=== PATIENT | male | born 1970 | race Caucasian/White ===

== ENCOUNTER 2019-07-15 20:06 | Emergency (ER) | payer BC ==
[2019-07-15] MEDS ORDERED: KETOROLAC 30 MG/ML VIAL IVP ONE (20:25)
[2019-07-15] MEDS ORDERED: METOCLOPRAMIDE HCL 10 MG/2 ML VIAL IVP ONE (20:25)
[2019-07-15] MEDS ORDERED: DIPHENHYDRAMINE HCL 50 MG/ML VIAL IVP ONE (20:25)
--- NOTE | 2019-07-15 20:28 | Emergency Department Record ---
History of Present Illness - General Chief Complaint: Headache Migraine Stated Complaint: headache,nausea Time Seen by Provider: 07/15/19 20:16 Source: Patient Mode of Arrival: Ambulatory Limitations: No limitations - History of Present Illness Initial Comments: 48 yo male presents to ED for evaluation of moderate to severe right sided headache symptoms that began approximately 5 hours ago. Patient reports nausea without vomiting, reports similar symptoms as a teenager due to migraines. Patient reports headache was gradual in onset, denies neck stiffness, fevers, chills, or anticoagulation use at home. MD Complaint: Headache Onset/Timin -: Hour(s) Onset Description: Gradual Location: Right Severity: Severe Quality: Throbbing, Similar to previous headaches Consistency: Constant Improves With: Nothing Worsens With: None Review of Systems Constitutional: Denies: Chills, Fever, Malaise, Night sweats Eyes: Denies: Eye discharge, Eye pain ENT: Denies: Congestion, Ear pain, Epistaxis Respiratory: Denies: Cough, Dyspnea Cardiovascular: Denies: Chest pain, Dyspnea on exertion Endocrine: Denies: Fatigue, Heat or cold intolerance Gastrointestinal: Reports: Nausea. Denies: Abdominal pain, Constipation, Vomiting Genitourinary: Denies: Incontinence, Retention Musculoskeletal: Denies: Arthralgia, Back pain, Gout, Joint swelling Skin: Denies: Bruising, Change in color Neurological: Reports: Headache. Denies: Abnormal gait, Confusion, Seizure Psychiatric: Denies: Anxiety Hematological/Lymphatic: Denies: Anemia, Blood Clots Physical Exam - General General Appearance: Alert, Oriented x3, Cooperative, Moderate distress Limitations: No limitations - Head Head exam: Atraumatic, Normocephalic, Normal inspection Head exam detail: negative: Abrasion, Contusion, Jean's sign, General tenderness, Hematoma, Laceration - Eye Eye exam: Normal appearance, PERRL. negative: Conjunctival injection, Periorbital swelling, Periorbital tenderness, Scleral icterus - ENT Ear exam: negative: Auricular hematoma, Auricular trauma Nasal Exam: negative: Active bleeding, Discharge, Dried blood, Foreign body Mouth exam: negative: Drooling, Laceration, Muffled voice, Tongue elevation - Neck Neck exam: Normal inspection. negative: Meningismus, Tenderness - Respiratory Respiratory exam: Normal lung sounds bilaterally. negative: Rales, Respiratory distress, Rhonchi, Stridor - Cardiovascular Cardiovascular Exam: Regular rate, Normal rhythm, Normal heart sounds - GI/Abdominal GI/Abdominal exam: Soft. negative: Rebound, Rigid, Tenderness - Rectal Rectal exam: Deferred - exam: Deferred - Extremities Extremities exam: Normal inspection. negative: Pedal edema, Tenderness - Back Back exam: Denies: CVA tenderness (R), CVA tenderness (L) - Neurological Neurological exam: Alert, Normal gait, Oriented X3 - Psychiatric Psychiatric exam: Normal affect, Normal mood - Skin Skin exam: Normal color. negative: Abrasion Type of lesion: negative: abrasion Course Vital Signs 07/15/19 20:21 Temperature 97.6 F Pulse Rate [ 70 Right] Respiratory 20 Rate Blood Pressure 164/113 [Left Arm] Pulse Ox 97 - Reevaluation(s) Reevaluation #1: 07/15/19 21:29 CT Brain: No acute intra-cranial process Retention polyp right maxillary sinus MDM: Patient was updated on his CT imaging result CT was performed within 6 hours of the onset of symptoms, and LP is not deemed necessary to exclude SAH based on timing of onset. Patient reports significant improvement in his symptoms on re-evaluation. Reevaluation #2: 07/15/19 22:03 Patient was reassessed, reports that his headache symptoms are resolved. Patient appears stable for discharge at this time. Disposition Disposition: Discharge Clinical Impression: Acute headache Qualifiers: Headache type: unspecified Intractability: not intractable Qualified Code(s): R51 - Headache Disposition: Home, Self-Care Condition: (2) Stable Instructions: Acute Headache (ED) Additional Instructions: Return to ED if your symptoms worsen or if you have any concerns. Follow-up with your family doctor in 3-5 days as directed. Forms: Patient Portal Access Time of Disposition: 22:03 Quality - Quality Measures Quality Measures: N/A - Blood Pressure Screening Does Patient Have Any of the Following: No Blood Pressure Classification: Hypertensive Reading Systolic Measurement: 164 Diastolic Measurement: 113 Screening for High Blood Pressure: < First Hypertensive BP, F/U Documented > [G8950] First Hypertensive Follow-up Interventions: Referral to alternative/primary care provider.
[2019-07-15] MEDS ORDERED: 0.9 % SODIUM CHLORIDE 1000ML 1,000 ML IV SCH (20:30)
--- NOTE | 2019-07-15 21:21 | CT SCAN REPORT ---
EXAMINATION: CT Head without IV Contrast EXAM DATE: 07/15/2019 8:52 PM TECHNIQUE: Standard protocol CT images of the head were obtained without intravenous contrast. Laughlin l and sagittal reconstructed images were created. INDICATION: headache COMPARISON: None HAND DOMINANCE: Unknown. ENCOUNTER: Not applicable FINDINGS: 1. There is no intracranial mass, midline shift, extraaxial fluid collection or hemorrhage. 2. The ventricles, sulci and cisterns are normal. 3. There are no suspicious area of altered attenuation. 4. No depressed or widely calvarial fracture. 5. The visualized aspects of the orbits, paranasal sinuses, and mastoid air cells are unremarkable, except for a small to moderate lobular mucosal retention cyst or polyp in the inferior aspect of the right maxillary sinus.. IMPRESSION: 1. No acute intracranial hemorrhage, mass lesion or mass effect. 2. Small to moderate lobular mucosal retention cyst or polyp in the right maxillary sinus. Dictated by: Bereket Martinez MD on 07/15/2019 9:17 PM. .
== END 2019-07-15 22:05 | disposition home or self-care (01) ==
LOC: ER 20:06
DX: R51 Headache (principal); R11.2 Nausea with vomiting, unspecified
CPT/HCPCS: 70450; 96374; 96375; 99284; J1200; J1885; J2765